=== PATIENT | female | born 1945 | race Caucasian/White ===

== ENCOUNTER 2017-05-23 13:20 | Outpatient (CLI) | payer OTHER ==
[2015-12-26 03:43] VITALS: BMI 28.3
--- NOTE | 2017-05-24 08:48 | MAMMO ---
EXAM: Bilateral digital screening mammogram (2-D and 3-D) History: Screening Comparison: Bilateral mammogram 12/28/2015 Findings: MLO and CC views of bilateral breasts demonstrate scattered fibroglandular breast parenchy ma. CAD was reviewed by the radiologist. Tomosynthesis was performed. Stable benign bilateral breast calcifications. There are no dominant masses, no suspicious microcalcifications and no architectura l distortions. Impression: Benign stable mammogram. Recommend followup routine screening mammography in 1 year. BIRADS 2
== END 2017-05-23 13:21 | disposition home or self-care (01) ==
LOC: RAD 13:20
PROVIDERS: ATTEND Internal Medicine
DX: Z12.31 Encounter for screening mammogram for malignant neoplasm of breast (principal)
CPT/HCPCS: 77067

== ENCOUNTER 2018-02-08 09:47 | Inpatient (IN) | payer OTHER ==
[2018-02-08 10:33] VITALS: BMI 30.2
[2018-02-08] MEDS ORDERED: TYLENOL PO PRN (10:34)
[2018-02-08] MEDS ORDERED: ATROPINE SULFATE PFS IVP PRN (10:34)
[2018-02-08] MEDS ORDERED: MORPHINE 4 MG/ML VIAL IVP PRN (10:34)
[2018-02-08] MEDS ORDERED: VISTARIL INJ IM PRN (10:34)
[2018-02-08] MEDS ORDERED: NITROSTAT SL PRN (10:34)
[2018-02-08] MEDS: COREG PO SCH ×2 (11:49→17:21)
[2018-02-08] MEDS: PROTONIX PO SCH ×2 (11:49→17:21)
--- NOTE | 2018-02-08 14:21 | DI ---
EXAM: CHEST FRONTAL AND LATERAL VIEWS HISTORY: Chest pain. COMPARISON: 12/26/2015 FINDINGS: Heart size remains within normal limits. Moderate atherosclerotic disease is again seen. Stable discoid opacity along the right minor fissure since comparison study in 2016, although new si nce 10/15/2013. This may represent interval development of scarring versus chronic atelectasis or re current focal pneumonia. Less likely developing neoplasia given stability since 2016. Normal vascul arity. No pleural fluid or pneumothorax. Chronic deformities of the right ribs. IMPRESSION: Discoid opacity in the right mid lung as described.
[2018-02-08] MEDS ORDERED: PRAVACHOL PO SCH ×2 (17:00)
[2018-02-08] MEDS: BETAPACE PO SCH ×2 (17:21→21:18)
[2018-02-08] MEDS: HYDROCHLOROTHIAZIDE PO SCH (21:17)
[2018-02-08] MEDS: ZESTRIL PO SCH (21:18)
[2018-02-08] MEDS: ELIQUIS PO SCH (21:19)
[2018-02-09 00:18] VITALS: TEMP 97.6
[2018-02-09 04:50] VITALS: BP 110/58
[2018-02-09] MEDS: PROTONIX PO SCH (05:43)
[2018-02-09] MEDS ORDERED: ATROPINE SULFATE PFS ONE (07:22)
[2018-02-09] MEDS ORDERED: DOBUTAMINE 250 ML IV ONE (07:22)
[2018-02-09] MEDS ORDERED: ASPIRIN EC PO SCH (08:00)
[2018-02-09] MEDS ORDERED: K-DUR PO SCH (08:30)
[2018-02-09] MEDS: COREG PO SCH (09:41)
[2018-02-09] MEDS: ZESTRIL PO SCH (09:41)
[2018-02-09] MEDS: HYDROCHLOROTHIAZIDE PO SCH (09:41)
[2018-02-09] MEDS: ELIQUIS PO SCH (09:42)
[2018-02-09] MEDS: BETAPACE PO SCH ×2 (09:42→14:50)
--- NOTE | 2018-02-09 11:36 | NM ---
Exam: Cardiac stress test. Reason for exam: Chest pain. Comparison: None available. Date of exam: 02/08/2018 Radiopharmaceutical: Rest: 12.2 mCi Tc-99m Sestamibi i.v. Stress: 31.1 mCi Tc-99m Sestamibi i.v. Dobutamine stress. FINDINGS: Standard myocardial perfusion images were obtained after injection of technetium 99m sesta mibi under resting conditions The patient was then stressed with dobutamine IV. Please see separate report by performing physician for details of the stress protocol Standard myocardial perfusion images were obtained after injection of technetium 99m sestamibi under stress conditions. Gated images were performed to evaluate left ventricular ejection fraction There is mildly decreased perfusion in both stress and rest images in the septal left ventricular anjelica cardium. Otherwise, the stress perfusion images demonstrate uniform distribution of activity in the left vent ricular myocardium. The rest perfusion images demonstrate uniform distribution of activity without evidence of significan t redistribution or ischemia. The left ventricular ejection fraction is calculated to be 88%. Impression: 1. Mildly decreased perfusion of the septal left ventricular myocardium on both stress and rest image s. Imaging findings may be secondary to breast attenuation artifact but may also represent mild isch emia. Recommend correlation with body habitus and consider dynamic imaging for further characterizat ion. 2. No evidence of significant redistribution. 3. Calculated left ventricular ejection fraction measures 88%.
--- NOTE | 2018-02-09 13:55 | HP ---
DATE OF SERVICE: 02/08/18 REASON FOR HOSPITALIZATION/HISTORY OF PRESENT ILLNESS: This is a 72-year-old female who states chest feels like it is tight, started in the middle of the night, lasted for 30 minutes. Nausea. No shortness of breath. No sweating. PAST MEDICAL HISTORY: 2. HYPERGLYCEMIA 3. KYPHOSIS 4. HISTORY OF ATRIAL FIBRILLATION 5. HISTORY OF CVA 6. COPD 7. HYPERTENSION 8. DYSLIPIDEMIA 9. OSTEOARTHRITIS 10. HISTORY OF PVC MENSTRUAL HISTORY: 1995 PAST SURGICAL HISTORY: Cataracts both eyes Macular pucker right eye REVIEW OF SYSTEMS: CONSTITUTIONAL: Fatigue. No fever. HEENT: No sinus drainage, no sore throat. RESPIRATORY: No cough, no congestion. No hemoptysis. CARDIOVASCULAR: Atypical chest pain for coronary artery disease. No shortness of breath. No angina, CHF symptoms, or palpitations. GASTROINTESTINAL: GERD symptoms. No melena or abdominal pain. GENITOURINARY: No hematuria, no polyuria. DYE RANGE TENDER: No blackout, no dizziness, no headache, no double vision. MUSCULOSKELETAL: Osteoarthritis pain. ENDOCRINE: No weight loss, no weight gain. SKIN: Not dry, no rash. PSYCHIATRIC: Anxious. No depression, no suicidal thoughts, no homicidal thoughts. SOCIAL HISTORY: 51 years in July. One child, male who is 48. Retired. Uses E. cigarettes. No alcohol use. No illicit drug use. FAMILY HISTORY: Father - - timber accident. Mother of colon cancer. No brothers. Four sisters - one with CAD. Three alive, one with Parkinson' s. MEDICATIONS: Eliquis 5 mg b.i.d. Lisinopril/HCTZ 20/25 b.i.d. Pravastatin 40 mg daily Sotalol 80 mg 1/2 t.i.d. ALLERGIES: LORTAB, LEXAPRO, PROAIR (FLUSH) PHYSICAL EXAMINATION: V/S: Pulse 78, BP 126/70, temperature 98.2, 02 sat 98. Height 5'3", Weight 162.4. BMI 28.8. GENERAL APPEARANCE: Oriented times three. HEENT: Normal. NECK: No JVP, no bruits. RESPIRATORY: Lungs are clear. CARDIOVASCULAR: Irregular heart rate. S1, S2, no S3, no murmurs. No cyanosis, clubbing. No ascites. GI/ABDOMEN: No tenderness. Bowel sounds are active. EXTREMITIES: No edema, pulses +1, equal. DYE RANGE TENDER: Deep tendon reflexes, sensory, motor and gait all normal. RECTAL/PELVIC: Patient refuses colonoscopy. Pelvic exam advised yearly. Bone Density 2017. ASSESSMENT: 1. CHEST PAIN WITH SEVERE CAD RISK FACTORS 2. HYPERGLYCEMIA 3. KYPHOSIS 4. HISTORY OF ATRIAL FIBRILLATION 5. HISTORY OF CVA 6. COPD 7. HYPERTENSION 8. DYSLIPIDEMIA 9. OSTEOARTHRITIS 10. HISTORY OF PVC PLAN: 1. Admit regular. 2. Routine telemetry orders 3. Continue all medications 4. Dobutamine stress echo Sestamibi 5. Coreg 3.125 mg p.o. b.i.d. daily 6. Echocardiogram 7. T4 and TSH 8. Protonix 40 mg p.o. now and b.i.d. 9. ABG 10. PFT 11. EKG reviewed and discussed. Atrial fibrillation has acute changes. TIME SPENT: More than 70 minutes. MTDD
--- NOTE | 2018-02-12 09:22 | PN ---
DATE OF SERVICE: 02/09/18 SUBJECTIVE: The patient was hospitalized through the office with chest pain. The patient's chest pain was somewhat atypical for coronary insufficiency. The patient is smoker and has chronic lung disease with atrial fibrillation with several risk factors for coronary artery disease. The patient is up and about. She will undergo echo and Dobutamine stress echo today. The patient also examined with Nurse Practitioners. The patient's cardiac markers and telemetry strips are all unremarkably. 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 She has agreed to take Novel blood thinner. Declined Coumadin therapy. The patient is intelligent and she signed out AMA. PHYSICAL EXAMINATION: HEENT: Head normocephalic, atraumatic. Eyes: Extraocular muscles are intact. Pupils are equal, round and reactive to light and accommodation. Ears: No lesions. Nose appeared normal. Throat: No exudate or erythema. NECK: Supple. No JVD, no carotid bruit. No lymphadenopathy or thyromegaly. LUNGS: Clear to auscultation. Percussion note normal. Chest symmetrical. HEART: S1, S2, no S3. No murmurs. No cyanosis or clubbing. No ascites. Pulses: Dorsalis pedis and posterior tibial pulses +1 to +2 both sides. ABDOMEN: Soft. Nontender. Bowel sounds active. No CVA tenderness. No mass felt. EXTREMITIES: No edema. Full range of motion of all extremities, equal. NEUROLOGIC: No focal deficit. Cranial nerves II through XII are grossly intact. No headache, no double vision or headache. SKIN: Not dry. Intact. Turgor - normal. LYMPHATIC: No palpable lymph nodes/no lymphedema. MUSCULOSKELETAL: Normal joints with no swelling. Muscle tone is normal. PLAN: 1. Education carried out about smoking, coronary artery disease, risk factors and how to modify them. 2. The patient to some extent is noncompliant. 3. Agreed for Dobutamine Stress echo and echo. CONDITION: Stable. TIME SPENT: More than 30 minutes. Plan and coordination of the patient's care discussed in the presence of nurse. ANIL
--- NOTE | 2018-02-12 09:29 | DS ---
DATE OF SERVICE: 02/09/18 FINAL DIAGNOSIS: 1. Chest pain seems to be noncardiac with negative stress echo sestamibi 2. Smoking 3. Chronic lung disease 4. Kyphosis 5. Osteoporosis 6. Atrial fibrillation DISCHARGE INSTRUCTIONS: Discharge the patient home on the same medications as before. Continue Eliquis MEDICATIONS AT DISCHARGE: Sotalol Eliquis Lisinopril Pravachol NEW PRESCRIPTIONS: None DIET INSTRUCTIONS: As tolerated ACTIVITY: As tolerated SMOKING: Counseling for smoking done. DISEASE SPECIFIC EDUCATION: Appointment Smoking Coronary artery disease and risk factors Medication side effects. LABS: The patient's cardiac markers are negative. The patient's echo showed normal LV contractility. Dobutamine stress echo was negative for ischemia. HOSPITAL COURSE: The patient was in stable condition but decided to sign out. I wanted her to stay one more day and carried out more education about coronary artery disease and risk factors. She decided to go. Her condition at the time of discharge. There is no change in the medication. Side effects of Eliquis discussed with GI bleed and intracranial bleed. Condition: Stable TIME SPENT: More than 60 minutes. ANIL
--- NOTE | 2018-02-12 09:30 | PN ---
02/08/18: Level 5 02/09/18: D as in discharge, The patient signed out against medical advise MTDDrea
--- NOTE | 2018-02-12 09:36 | AMA ---
DATE OF SERVICE: 02/09/18 FINAL DIAGNOSIS: 1. Chest pain seems to be noncardiac with negative stress echo sestamibi 2. Smoking 3. Chronic lung disease 4. Kyphosis 5. Osteoporosis 6. Atrial fibrillation DISCHARGE INSTRUCTIONS: Discharge the patient home on the same medications as before. Continue Eliquis MEDICATIONS AT DISCHARGE: Sotalol Eliquis Lisinopril Pravachol LABS: The patient's cardiac markers are negative. The patient's echo showed normal LV contractility. Dobutamine stress echo was negative for ischemia. HOSPITAL COURSE: The patient was in stable condition but decided to sign out. I wanted her to stay one more day and carried out more education about coronary artery disease and risk factors. She decided to go. Her condition at the time of discharge. There is no change in the medication. Side effects of Eliquis discussed with GI bleed and intracranial bleed. Condition: Stable MTDD
--- NOTE | 2018-02-12 13:30 | ECHOSTRESS ---
Date of Exam: 02/09/18 Ordering Physician: KJ RUIZ MD Reason for Echo: CHEST TIGHTNESS, CHEST PAIN, SHORT OF BREATH. DOBUTAMINE STRESS - NO ISCHEMIA M-Mode Normal Adult Results LV Dimensions Normal Adult Results AoV Opening excursions >1.6 LVEDD-base- 3.5-5.8 Ao root dimensions 2.0-3.7 LVESD-base- 3.1-4.6 L. Atrium dimensions 1.9-3.8 Post. Wall thickness 0.8-1.1 IV septum (thickness) 0.7-1.2 Post. Wall excursion 0.72-1.3 Septal motion Systolic motion R. Ventricular cavity 1.5-2.0 LVEF 60% Paradoxical septal wall motion 2-D: NORMAL LEFT VENTRICULAR CONTRACTILITY RESTING AND WITH DOBUTAMINE INFUSION M-MODE: MV: AV: TV: PV: CHAMBER SIZE: WALL MOTION: NORMAL LEFT VENTRICULAR CONTRACTILITY RESTING AND WITH DOBUTAMINE INFUSION PERICARDIUM: INTERPRETATION: 1. NORMAL LEFT VENTRICULAR CONTRACTILITY RESTING AND WITH DOBUTAMINE INFUSION SESTAMIBI TO FOLLOW MTDD
--- NOTE | 2018-02-12 13:46 | ECHO2D ---
Date of Exam: 02/09/18 Ordering Physician: KJ RUIZ MD Room # : [id number] Reason for Echo: CHEST TIGHTNESS, CHEST PAIN, SHORT OF BREATH M-Mode Normal Adult Results LV Dimensions Normal Adult Results AoV Opening excursions >1.6 >1.6 LVEDD-base- 3.5-5.8 3.6 Ao root dimensions 2.0-3.7 3.2 LVESD-base- 3.1-4.6 L. Atrium dimensions 1.9-3.8 4.2 Post. Wall thickness 0.8-1.1 1.1 IV septum (thickness) 0.7-1.2 1.0 Post. Wall excursion 0.72-1.3 NORMAL Septal motion NORMAL Systolic motion R. Ventricular cavity 1.5-2.0 NORMAL LVEF 60% 72% Paradoxical septal wall motion NORMAL 2-D : ENLARGED LEFT ATRIAL CAVITY - 2-D M Mode Echocardiogram was performed using apical four chamber and left parasternal long and short axis views. Mitral, tricuspid and aortic valves appear to be normal. Contractility of the left ventricle seems to be normal, so is the cavity size. Left atrial cavity size and aortic root appear to be normal. There is no pericardial effusion. There is no thrombus noted in the left ventricular or left aortic cavity. No mitral valve prolapse noted. M-MODE: MV: NORMAL AV: NORMAL TV: NORMAL PV: CHAMBER SIZE: ENLARGED LEFT ATRIAL CAVITY WALL MOTION: NORMAL PERICARDIUM: NORMAL INTERPRETATION: 1. ENLARGED LEFT ATRIAL CAVITY 2. NORMAL LEFT VENTRICULAR CONTRACTILITY 3. NORMAL VALVES MTDD
--- NOTE | 2018-02-12 15:04 | DOBSTECHST ---
Ordering Physician: KJ RUIZ MD Date of Test: 02/09/18 Reason for Examination: CHEST TIGHTNESS, CHEST PAIN, SHORT OF BREATH Height: 62" Weight: 149 LBS Current Medications: PRAVACHOL, ELIQUIS, LISINOPRIL / HCTZ, SOTALOL Target Heart Rate: 126/149 S-T Segment Stage Time HR BPM BP mmhg Rhythm +/- Elevation Depression Comments/ Symptoms Control Sitting 65 124/82 SR X NONE Dobutamine 250mg/D5W 5cmg/KG/mn 10cmg/KG/mn 3 :00 77 154/76 SR X NONE 15cmg/KG/mn 2:00 78 158/72 SR X NONE 20cmg/KG/mn 2:00 92 168/80 SR X NONE 25cmg/KG/mn 2:00 109 172/86 SR X NONE 30cmg/KG/mn :20 139 SR X NONE 35cmg/KG/mn 40cmg/KG/mn Time: 4" HR B/P Time: 7" HR B/P Time: 9" HR B/P Recovery 83 158/76 Recovery 94 140/80 Recovery 70 Total Time: 9:20 MAXIMUM HEART RATE REACHED: 139 98% OXYGEN SATURATION AT REST WITH DOBUTAMINE INFUSION Interpretation: 1. NO EVIDENCE OF ISCHEMIA BY ST-T WAVE 2. NO CHEST PAIN OR CHEST DISCOMFORT 3. NORMAL LEFT VENTRICULAR CONTRACTILITY- RESTING AND WITH DOBUTAMINE INFUSION SESTAMIBI TO FOLLOW MTDD
== END 2018-02-09 17:25 | disposition left against medical advice (07) | DRG 206 ==
LOC: MEDSURG B 09:47
PROVIDERS: ADMIT Internal Medicine; ATTEND Internal Medicine
DX: J98.4 Other disorders of lung (principal); M40.209 Unspecified kyphosis, site unspecified; I48.91 Unspecified atrial fibrillation; J44.9 Chronic obstructive pulmonary disease, unspecified; I10 Essential (primary) hypertension; E78.5 Hyperlipidemia, unspecified; R73.9 Hyperglycemia, unspecified; M81.0 Age-related osteoporosis without current pathological fracture; Z86.73 Personal history of transient ischemic attack (TIA), and cerebral infarction without residual deficits; Z79.01 Long term (current) use of anticoagulants; Z72.0 Tobacco use
CPT/HCPCS: 36415; 80053; 81001; 82550; 82803; 84436; 84443; 84484; 85025; 93005; 93010

== ENCOUNTER 2018-05-22 14:00 | Outpatient (CLI) ==
--- NOTE | 2018-05-23 10:05 | MAMMO ---
EXAM: Digital screening mammogram with tomosynthesis HISTORY: Screening COMPARISON: 05/23/2017 FINDINGS: Digital MLO and CC views of the right and left breast were performed. Tomosynthesis was performed. Computer aided detection utilized. There are scattered fibroglandular densities. There is no evidence for mass, asymmetry, distortion, or suspicious calcifications in either breast. IMPRESSION: 1. No evidence of malignancy in the right or left breast. 2. Annual screening mammogram is recommended in one year. BIRADS category 1, negative examination
== END 2018-05-22 14:01 | disposition home or self-care (01) ==
LOC: RAD 14:00
PROVIDERS: ATTEND Internal Medicine
DX: Z12.31 Encounter for screening mammogram for malignant neoplasm of breast (principal)
CPT/HCPCS: 77067